=== PATIENT | female | born 1980 | race Caucasian/White ===

== ENCOUNTER 2017-08-21 20:26 | Emergency (ER) | payer OTHER ==
[~2017-08-21] VITALS: Ht 165.1 cm; Wt 72.0 kg
[2017-08-21 20:43] VITALS: BP 176/98
== END 2017-08-21 23:02 | disposition left against medical advice (07) ==
LOC: EME 20:26
DX: R22.0 Localized swelling, mass and lump, head (principal); Z53.21 Procedure and treatment not carried out due to patient leaving prior to being seen by health care provider